=== PATIENT | female | born 1945 | race Caucasian/White ===

== ENCOUNTER 2017-10-24 05:56 | Inpatient (IN) | payer OTHER ==
[2017-10-17 13:27] VITALS: BMI 33.0
--- NOTE | 2017-10-17 13:55 | PAT Medication Instructions ---
Service Date Oct 17, 2017. Current Home Medication List Amlodipine (Norvasc), 5 MG PO QAM Budesonide/Formoterol Fumarate (Symbicort 160/4.5 Inhaler ), 2 PUFFS INH BID Losartan Potassium (Cozaar), 50 MG PO QAM Sertraline (Zoloft), 25 MG PO QAM Tramadol (Ultram), 50 MG PO TID PRN for RN [Levalbuterol Inh], 1 DOSE INH PRN Medication Instructions For Your Scheduled Surgery - Hold the following medications the morning of surgery: Losartan Potassium (Cozaar), 50 MG PO QAM - Take the following medications the morning of surgery with a sip of water OTHERWISE NOTHING TO EAT OR DRINK AFTER MIDNIGHT: Tramadol (Ultram), 50 MG PO TID PRN (may take if needed up to 4 hours prior to surgery) Amlodipine (Norvasc), 5 MG PO QAM Sertraline (Zoloft), 25 MG PO QAM Budesonide/Formoterol Fumarate (Symbicort 160/4.5 Inhaler ), 2 PUFFS INH BID [Levalbuterol Inh], 1 DOSE INH PRN (use if needed; BRING TO HOSPITAL) - Take the following medications as scheduled the night before surgery: Tramadol (Ultram), 50 MG PO TID PRN Budesonide/Formoterol Fumarate (Symbicort 160/4.5 Inhaler ), 2 PUFFS INH BID [Levalbuterol Inh], 1 DOSE INH PRN If you have any questions please call us at [phone] or [phone] or [phone]
--- NOTE | 2017-10-17 14:37 | DIAGNOSTIC IMAGING REPORT ---
CHEST 2 VIEWS ROUTINE HISTORY: Preop. COMPARISON: None. FINDINGS: The lungs are hyperexpanded with apical predominant emphysematous changes. The heart is normal in size. No pleural effusions. No pneumothorax. A 4 mm nodular density within the periphery of the right midlung zone at the minor fissure. IMPRESSION: No acute process. A 4 mm nodular density along the right minor fissure. Electronically signed by: Scott Duval M.D. 10/17/2017 2:35 PM Dictated Date/Time: 10/17/2017 2:30 PM
[2017-10-17 14:50] LABS: BASO % 0.2 %; BASO ABS # 0.02 K/uL (0-0.2); EOS % 4.4 %; EOS ABS # 0.36 K/uL (0-0.5); HEMOGLOBIN 12.4 g/dL (12.0-16.0); IG# 0.03 K/uL (0.00-0.02); LYMPH % 20.9 %; LYMPH ABS # 1.71 K/uL (1.2-3.4); MEAN CELL VOLUME 93.2 fL (80-100); MEAN CORPUSCULAR HEMOGLOBIN 31.2 pg (25-34); MEAN CORPUSCULAR HGB CONC 33.5 g/dl (32-36); MEAN PLATELET VOLUME 10.9 fL (7.4-10.4); MONO % 7.4 %; MONO ABS # 0.61 K/uL (0.11-0.59); NEUT % 66.7 %; NEUT ABS # 5.47 K/uL (1.4-6.5); PLATELET COUNT 313 K/uL (130-400); RED CELL DISTRIBUTION WIDTH CV 13.8 % (11.5-14.5); RED CELL DISTRIBUTION WIDTH SD 47.7 fL (36.4-46.3)
[2017-10-17 15:00] LABS: PTT PATIENT 25.1 SECONDS (21.0-31.0)
[2017-10-17 15:38] LABS: CALCIUM 9.1 mg/dl (8.5-10.1); CREATININE 1.48 mg/dl (0.60-1.20); POTASSIUM 5.2 mmol/L (3.5-5.1)
[2017-10-17 15:40] LABS: TOTAL PROTEIN 8.1 gm/dl (6.4-8.2)
[2017-10-18 05:46] LABS: HEMOGLOBIN A1C 5.4 % (4.5-5.6)
--- NOTE | 2017-10-18 12:33 | HISTORY & PHYSICAL EXAMINATION ---
DATE OF ADMISSION: 10/24/2017 CHIEF COMPLAINT: Left hip pain. HISTORY OF PRESENT ILLNESS: Ana is a 72-year-old female with a multiple-year history of pain in her left hip. The patient rates her pain a 10/10. She has pain with her daily activities. She has limited standing and walking tolerance. Pain is worse with weightbearing. The patient has had Mobic, PT and injections without relief. She has failed conservative treatment and is scheduled for a left hip replacement. PAST MEDICAL HISTORY: Hypertension and asthma. She denies heart disease, diabetes or DVT. PAST SURGICAL HISTORY: Hysterectomy, carpal tunnel release and right ulnar nerve transfer. SOCIAL HISTORY: The patient denies alcohol or tobacco use. She lives in a single anne home. She is and retired. FAMILY HISTORY: Negative for DVT. MEDICATIONS: Meloxicam 15 mg daily, Symbicort 160 two puffs two times daily, tramadol 50 mg p.r.n., levalbuterol 0.63 mg 3 liters q. 8 hours, sertraline 25 mg, amlodipine 25 mg daily, azithromycin 250 mg daily. ALLERGIES: CODEINE CAUSES ANAPHYLAXIS. REVIEW OF SYSTEMS: See HPI. Ten other systems reviewed, all negative. PHYSICAL EXAMINATION: VITAL SIGNS: Height 6 feet 0 inches, weight 163 pounds. BMI is 33. GENERAL: This is a well-developed, well-nourished female who is alert and oriented x3. Mood and affect are appropriate. HEENT: Normocephalic, atraumatic. Mucous membranes are moist and intact. NECK: Supple without lymphadenopathy. HEART: Regular rate and rhythm without murmurs, rubs, or gallops. LUNGS: Clear to auscultation without wheezes or rhonchi. ABDOMEN: Soft and nontender. Bowel sounds are equal and active. EXTREMITIES: No ecchymosis, redness or warmth. Log roll of the hip reproduces pain in the groin. Range of motion is decreased. She is neurovascularly intact. She has no distal edema. She walks with an antalgic gait. X-RAY EXAMINATION: AP and lateral views show joint space narrowing and osteophyte formation. IMPRESSION: Degenerative joint disease, left hip. PLAN: The patient will be admitted for a left total hip arthroplasty with Dr. Brower. We will plan on aspirin 325 mg b.i.d. for DVT prophylaxis. The patient's PCP is Dr. Mccormick.
[2017-10-24] VITALS (8 sets, daily range): BP systolic 79–132; BP diastolic 48–81; PULSE 74–86; TEMP 36.3–36.9; O2SAT 96–100; Ht 152.4 cm; Wt 76.5 kg
[~2017-10-24] VITALS: Ht 152.4 cm; Wt 76.5 kg
[~2017-10-24 05:56] MED LIST: AMLO-110 PO; LEVALBUTEROL; LOSA50TA6 PO; SERT25TA PO; SYMIN160 INH; TRAM-10 PO
[2017-10-24] MEDS ORDERED: GABAPENTIN 300 MG CAP PO SCH (06:00)
[2017-10-24] MEDS ORDERED: CeleBREX 200 MG CAP PO SCH (06:00)
[2017-10-24] MEDS ORDERED: ACETAMINOPHEN 500 MG TAB PO SCH (06:00)
[2017-10-24] MEDS ORDERED: ROPIVACAINE 5MG/ML 30 ML 150 MG, BUPIVACAINE 0.5% MPF INJ 30 ML, EpINEphrine HCL INJ 0.... INFIL SCH ×16 (06:00)
[2017-10-24] MEDS ORDERED: METOCLOPRAMIDE HCL 10 MG TAB PO SCH (06:00)
[2017-10-24] MEDS ORDERED: LACTATED RINGER'S 1000ML 500 ML IV SCH (06:00)
[2017-10-24] MEDS ORDERED: FAMOTIDINE 20 MG TAB PO SCH (06:00)
[2017-10-24] MEDS ORDERED: DEXAMETHASONE 4 MG TAB PO SCH (06:00)
[2017-10-24] MEDS ORDERED: CEFAZOLIN 1000MG IV PUSH 5 ML IV SCH (06:00)
[2017-10-24] MEDS ORDERED: LACTATED RINGER'S 1000ML 1,000 ML IV SCH (06:00)
[2017-10-24] MEDS ORDERED: BUPIVACAINE 0.5 % 5 MG/1 ML PF 10ML VIAL ONE (06:31)
[2017-10-24] MEDS ORDERED: POVIDONE-IODINE OP SOLN 30 ML BTL ONE (06:53)
[2017-10-24] MEDS ORDERED: ORTHO JOINT ANESTHETIC ONE (06:53)
[2017-10-24] MEDS ORDERED: BACITRACIN 50000 UNIT VIAL ONE (06:53)
--- NOTE | 2017-10-24 07:09 | History & Physical Bridge Note ---
H&P Re-Evaluation Bridge Note: I have examined the patient, reviewed the History & Physical and in the interval since the performance of the History & Physical I have noted the following changes of clinical significance: No changes noted
[2017-10-24] MEDS ORDERED: ONDANSETRON INJ 2 MG/ML 2 ML VIAL IV PRN ×2 (08:00→11:30)
[2017-10-24] MEDS ORDERED: FENTANYL CITRATE INJ 50 MCG/1 ML 2 ML VIAL IV PRN (08:00)
[2017-10-24] MEDS ORDERED: ATROPINE SULFATE 0.1 MG/ML 5ML SYR IV PRN (08:00)
[2017-10-24] MEDS ORDERED: EpHEDrine SULFATE INJ 50 MG/ML AMP IV PRN (08:00)
[2017-10-24] MEDS ORDERED: MIDAZOLAM HCL 1 MG/ML 2ML VIAL ONE ×3 (08:01→10:47)
[2017-10-24 08:16] LABS: CALCIUM 9.2 mg/dl (8.5-10.1); CREATININE 1.52 mg/dl (0.60-1.20); POTASSIUM 5.1 mmol/L (3.5-5.1)
[2017-10-24] MEDS: TRANEXAMIC ACID INJ 1,000 MG in SYRINGE 0 ML IV SCH ×2 (08:50→14:16)
[2017-10-24] MEDS ORDERED: PHENYLEPHRINE 100MCG/ML 5ML SYR ONE (09:39)
[2017-10-24] MEDS ORDERED: SODIUM CHLORIDE 0.9% INJ 10 ML VIAL ONE (09:39)
[2017-10-24] MEDS ORDERED: EpHEDrine SULFATE 50MG/5ML SYR ONE (09:39)
[2017-10-24] MEDS ORDERED: CEFAZOLIN SOD 1 GM VIAL ONE (09:39)
[2017-10-24] MEDS ORDERED: LIDOCAINE HCL 2% 2 ML VIAL (20MG/ML) ONE (09:39)
[2017-10-24] MEDS ORDERED: PROPOFOL IV EMULSION 10 MG/ML 20 ML VIAL IV ONE (09:39)
[2017-10-24] MEDS ORDERED: ALBUMIN HUMAN 5% 12.5 GM/250 ML VIAL IV ONE (10:38)
[2017-10-24] MEDS ORDERED: PHENYLEPHRINE HCL INJ 10 MG/ML VIAL ONE (11:00)
--- NOTE | 2017-10-24 11:22 | [facility] Post Operative Brief Note ---
Immediate Operative Summary Operative Date Oct 24, 2017. Pre-Operative Diagnosis Left Hip Degenerative Joint Disease Post-Operative Diagnosis Same as preop Procedure(s) Performed Left Total Hip Arthroplasty Uncemented Surgeon Dr. Brower Car Driver Surgeon(s) Brandt Levine PA-C Estimated Blood Loss 500 ml Findings Consistent with Post-Op Diagnosis Specimens A. Left Femoral Head Drains None Anesthesia Type MAC Spinal Regional Complication(s) none Disposition Disposition: Recovery Room / PACU
[2017-10-24] MEDS ORDERED: OXYCODONE HCL IR 5 MG TAB (IMMEDIATE RELEASE) PO PRN (11:30)
[2017-10-24] MEDS ORDERED: MoRPHine SULFATE 4 MG/ML 1 ML CARP\\VIAL IV PRN (11:30)
[2017-10-24] MEDS ORDERED: FENTANYL CITRATE INJ 50 MCG/1 ML 2 ML VIAL ONE (11:31)
--- NOTE | 2017-10-24 12:34 | DIAGNOSTIC IMAGING REPORT ---
AP PELVIS, CROSSTABLE LATERAL LEFT HIP History: Left total hip arthroplasty. Degenerative arthritis. Postop. FINDINGS: The patient is status post a left total hip arthroplasty. The hardware is intact. No fracture or dislocation. Skin minor and surgical drains are in place. IMPRESSION: Left total hip arthroplasty. No evidence for hardware complication. Electronically signed by: Scott Duval M.D. 10/24/2017 12:32 PM Dictated Date/Time: 10/24/2017 12:31 PM
--- NOTE | 2017-10-24 13:48 | Anesthesiology Progress Note ---
Anesthesia Post Op Note Date & Time Oct 24, 2017 at 13:48 Vital Signs Pain Intensity: 0 Vital Signs Past 12 Hours Date Time Temp Pulse Resp B/P (MAP) Pulse Ox O2 Delivery O2 Flow Rate FiO2 10/24/17 12:55 77 16 106/64 99 Nasal Cannula 2 10/24/17 12:45 73 16 98/65 100 Nasal Cannula 2 10/24/17 12:35 77 16 101/57 100 Nasal Cannula 2 10/24/17 12:25 36.6 77 16 94/57 100 Nasal Cannula 2 10/24/17 12:15 73 16 98/59 100 Nasal Cannula 2 10/24/17 12:05 78 16 111/56 100 Nasal Cannula 2 10/24/17 11:55 78 16 98/51 100 Nasal Cannula 2 10/24/17 11:47 83/64 10/24/17 11:46 37 73 16 10/24/17 06:54 36.9 79 21 132/81 97 Room Air Notes Mental Status: alert / awake / arousable, participated in evaluation Pt Amnestic to Procedure: Yes Nausea / Vomiting: adequately controlled Pain: adequately controlled Airway Patency, RR, SpO2: stable & adequate BP & HR: stable & adequate Hydration State: stable & adequate Neuraxial Anesthesia: was administered, sensory block is resolving Anesthetic Complications: no major complications apparent
[2017-10-24] MEDS: ACETAMINOPHEN 500 MG TAB PO SCH ×2 (14:30→21:35)
[2017-10-24] MEDS: TRAMADOL HCL 50 MG TAB PO PRN (14:30)
[2017-10-24] MEDS: SODIUM CHLORIDE 0.9% 1000ML 1,000 ML IV SCH (14:48)
--- NOTE | 2017-10-24 15:28 | Discharge Instructions ---
Discharge Instructions Date of Service Oct 24, 2017. Admission Reason for Admission: Left Hip Osteoarthritis Discharge Discharge Diagnosis / Problem: sp left JACQUELIN Discharge Goals Goal(s): Decrease discomfort, Improve function, Increase independence Activity Recommendations Activity Limitations: per Instructions/Follow-up section . Instructions / Follow-Up Instructions / Follow-Up ACTIVITY RECOMMENDATIONS: SELF CARE INSTRUCTIONS AFTER TOTAL HIP REPLACEMENT Until the incision and soft tissues around your hip have healed, there is a possibility that the hip prosthesis could dislocate. A. Observe the following precautions to prevent dislocation: 1. Don't bend your hip greater than 90 degrees. 2. Avoid crossing your legs or ankles while standing or lying. 3. Sit with your feet placed 6 inches apart. 4. When sitting, keep your knees below your hips. Sit on a firm surface, avoid deep, soft chairs and couches. Use an elevated toilet seat in the bathroom. 5. Don't bend over at the waist. Use a long handled shoehorn and a sock aid to help you put on your shoes and socks. A team manager can help you pickle cutter objects that are too high or too low to reach. 6. Keep car riding to a minimum for at least one month after surgery. B. Your balance may be shaky for a while. Use crutches or a walker until directed by your doctor. C. Use hand rails when walking on stairs. D. Wear low heeled shoes with non-slip soles. E. Be sure that your floors are free of things that could trip you - throw rugs , electrical cords, small objects. Avoid wet and waxed floors, especially with crutches and canes. F. Try to walk several times a day with rest periods between. G. Continue with all the exercises taught to you in the hospital. Again, make walking a part of your daily routine. SPECIAL CARE INSTRUCTIONS: VERY IMPORTANT TO READ AND REVIEW A. You may still be at risk for phlebitis and blood clots. 1. Wear surgical stockings (KHUSHBU hose) for 2 weeks after surgery to improve circulation and reduce swelling. 2. Take Aspirin 325 mg twice daily for 4 weeks or as directed by your doctor. This is your blood thinner. 3. High risk patients may be prescribed a stronger blood thinner if necessary. 4. If you are on Coumadin normally, your family doctor/director employee communications should monitor your blood work. Expect a phone call the day of or the day after bloodwork is drawn to adjust your dosage. B. You must take antibiotics before having dental work, bladder, bowel and other surgery. Your doctor will provide you with a permanent card to carry describing precautions. C. Call [facility] if you have a fever, redness or swelling around the incision, cloudy drainage from incision, or sudden increase in pain in your hip, not relieved by your regular pain medication. D. Please call the office at if you have any concerns or questions about your operation or recovery. * YOU MAY SHOWER, NO TUB BATHS UNTIL CLEARED BY YOUR DOCTOR. * WEAR KHUSHBU HOSE 20 HOURS PER DAY FOR 2 WEEKS. * YOU SHOULD USE A WALKER OR CRUTCHES FOR 2-4 WEEKS. THIS WILL HELP PREVENT STRAIN ON YOUR HIP MUSCLE AND ALLOW IT TO HEAL PROPERLY. YOU MAY WEAN TO A CANE TOLERATED. * MOST PATIENTS WILL HAVE HOME NURSING FOR THERAPY. IF YOU DECIDE TO DO OUTPATIENT PHYSICAL THERAPY, PLEASE SCHEDULE THIS 3 TIMES PER WEEK. DERMABOND Prineo- This is a mesh tape dressing that is covered with glue. It should remain in place until the incision is properly healed, usually 10-14 days. This dressing is designed to naturally slough off. You may trim the excess mesh tape as it peels off. Incision may be briefly wet in a shower. Dry immediately by blotting with a clean, dry towel. Do not bath or swim until instructed by your doctor. Do not scratch, rub, or pick at the dressing. Do not apply any topical ointments or lotions until dressing is completely removed and/or instructed by your doctor. There may be a small piece of suture material at one end of your incision. Do not pull or trim this. If it is bothersome or catching on clothing, you may cover it with a band-aid. FOLLOW UP VISIT: If appointment is not already scheduled: Please call [facility] to make a follow-up appointment for 2 weeks after your surgery at . Current Hospital Diet Patient's current hospital diet: Regular Diet Discharge Diet Recommended Diet: Regular Diet Procedures Procedures Performed: Left Total Hip Arthroplasty Uncemented Pending Studies Studies pending at discharge: no Laboratory Results Hemoglobin A1c Test 10/17/17 14:07 Range/Units Estimated Average Glucose 108 mg/dl Hemoglobin A1c 5.4 4.5-5.6 % Medical Emergencies . Who to Call and When: Medical Emergencies: If at any time you feel your situation is an emergency, please call 911 immediately. . Non-Emergent Contact Non-Emergency issues call your: Surgeon . "Provider Documentation" section prepared by Maeve Santos. . VTE Core Measure Inpt VTE Proph given/why not?: Other Anticoagulation, T.E.D. Stockings, SCD's [place] Drug Monitoring Program Search Results: patient reviewed within database, no issues identified
[2017-10-24] MEDS ORDERED: XPNINS INH (15:55)
[2017-10-24] MEDS ORDERED: LEVALBUTEROL 0.63MG/3 ML NEB INH PRN (16:00)
[2017-10-24] MEDS ORDERED: NURSING VERBAL MED ORDER ONE (16:00)
[2017-10-24] MEDS: CEFAZOLIN IV 1,000 MG in SYRINGE 0 ML IV SCH (18:25)
[2017-10-24] MEDS: KETOROLAC TROMETHAMINE 15 MG/ML VIAL IV. SCH ×2 (18:25→23:32)
--- NOTE | 2017-10-24 20:31 | Orthopedic Progress Note ---
Orthopedic Progress Note Date of Service Oct 24, 2017. Subjective Additional Notes: Postoperative progress note Patient seen at bedside, comfortable, no acute issues, pain well controlled. Objective LLE NVSI +EHL/FHL/TA/GS SILT grossly, CR< 2 seconds, +2 DP pulse, compartments soft NT, dressing cdi Date Time Temp Pulse Resp B/P (MAP) Pulse Ox O2 Delivery O2 Flow Rate FiO2 10/24/17 19:31 36.3 78 18 99/62 (74) 98 Room Air 10/24/17 16:08 36.5 83 18 97/57 (70) 96 Room Air 10/24/17 15:45 96 Room Air 10/24/17 15:05 36.5 82 16 95/59 (71) 100 2.0 10/24/17 14:05 86 16 110/66 (81) 99 2.0 10/24/17 13:30 78 14 112/70 (84) 100 Nasal Cannula 2.0 10/24/17 13:05 Nasal Cannula 10/24/17 13:05 Nasal Cannula 10/24/17 12:55 77 16 106/64 99 Nasal Cannula 2 10/24/17 12:45 73 16 98/65 100 Nasal Cannula 2 10/24/17 12:35 77 16 101/57 100 Nasal Cannula 2 10/24/17 12:25 36.6 77 16 94/57 100 Nasal Cannula 2 10/24/17 12:15 73 16 98/59 100 Nasal Cannula 2 10/24/17 12:05 78 16 111/56 100 Nasal Cannula 2 10/24/17 11:55 78 16 98/51 100 Nasal Cannula 2 10/24/17 11:47 83/64 10/24/17 11:46 37 73 16 10/24/17 06:54 36.9 79 21 132/81 97 Room Air Assessment & Plan Assessment: s/p Left JACQUELIN Plan: -Ancef x 24 -DVT ppx - ASA BID -WBAT -PT/OT -Posterior hip precautions -Pain controlled -Am labs -Post operative XR demonstrates well aligned well fixed prosthesis, no fracture/ dislocation
[2017-10-24] MEDS: ASPIRIN 325 MG ECTAB PO SCH (20:33)
[2017-10-24] MEDS: BUDESONIDE/FORMOTEROL FUMARATE 160/4.5 60 PUFFS/INHALER INH SCH (20:33)
[2017-10-24] MEDS: SENNA 8.6 MG TAB PO SCH (20:33)
[2017-10-24] MEDS: DOCUSATE SODIUM 100 MG CAP PO SCH (20:33)
[2017-10-25] VITALS (15 sets, daily range): BP systolic 90–147; BP diastolic 55–73; PULSE 79–94; TEMP 36.2–36.7; O2SAT 96–99
[2017-10-25] MEDS: SODIUM CHLORIDE 0.9% 1000ML 1,000 ML IV SCH ×2 (00:33→10:12)
[2017-10-25] MEDS: CEFAZOLIN IV 1,000 MG in SYRINGE 0 ML IV SCH (02:04)
[2017-10-25 05:39] LABS: HEMATOCRIT 21.3 % (37-47); HEMOGLOBIN 7.1 g/dL (12.0-16.0); IG# 0.02 K/uL (0.00-0.02); LYMPH % 7.4 %; LYMPH ABS # 0.79 K/uL (1.2-3.4); MEAN CELL VOLUME 91.8 fL (80-100); MEAN CORPUSCULAR HEMOGLOBIN 30.6 pg (25-34); MEAN CORPUSCULAR HGB CONC 33.3 g/dl (32-36); MEAN PLATELET VOLUME 10.2 fL (7.4-10.4); MONO ABS # 0.64 K/uL (0.11-0.59); NEUT % 86.4 %; PLATELET COUNT 193 K/uL (130-400); RED CELL DISTRIBUTION WIDTH CV 13.9 % (11.5-14.5); RED CELL DISTRIBUTION WIDTH SD 46.8 fL (36.4-46.3); WHITE BLOOD COUNT 10.65 K/uL (4.8-10.8)
[2017-10-25] MEDS: ACETAMINOPHEN 500 MG TAB PO SCH ×3 (05:47→22:05)
[2017-10-25] MEDS: KETOROLAC TROMETHAMINE 15 MG/ML VIAL IV. SCH (05:47)
[2017-10-25 05:58] LABS: CALCIUM 7.6 mg/dl (8.5-10.1); CREATININE 2.01 mg/dl (0.60-1.20); POTASSIUM 5.2 mmol/L (3.5-5.1)
--- NOTE | 2017-10-25 06:32 | Clinical Documentation Query ---
CLINICAL DOCUMENTATION QUERY 72-y/o female who has undergone left uncemented THR. Patient has become anemic and hypotensive since surgery and has been given PRBC's. In your clinical opinion is this patient being managed for: ( X ) "Expected acute blood loss anemia" treated with IVF's and PRBC's. (THIS IS NOT A COMPLICATION OF CARE) ( ) Not Agree ( ) Other explanation of clinical findings (Please Explain) ( ) Unable to determine (Please Define) ( ) Need to Discuss The medical record reflects the following clinical findings, treatment, and risk factors. Clinical Indicators: Hgb 12.4->7.1, Hct 37.0->21.4, EBL of 500ml's, Hypotension 79/58 Treatment: According to I/O's PRBC's and IVF boluses where given likely in OR, monitored daily CBC's, post op VS, and on IVF's Risk Factors: Age, major orthopedic surgery Please clarify and document your clinical opinion in the progress notes and discharge summary. Terms such as "probable", "suspected", "likely", "questionable", "possible", or "still to be ruled out" are acceptable. IF IN AGREEMENT, YOU MUST DOCUMENT ABOVE DIAGNOSTIC STATEMENT IN DAILY PROGRESS NOTES AND DISCHARGE SUMMARY. This document is not part of the patient's record. Thank You, Nolan Candelario, ROMA [phone]
--- NOTE | 2017-10-25 08:33 | Orthopedic Progress Note ---
Orthopedic Progress Note Date of Service Oct 25, 2017. Subjective Reports: feeling well, complaints, pain controlled w PO medications, Denies: chest pain, SOB, nausea / vomiting, light headedness, calf pain Additional Notes: Patient doing well, denies SOB, feeling lightheaded, CP, Fevers or chills. Pain well controlled. Objective LLE NVSI +EHL/FHL/TA/GS SILT grossly, CR< 2 seconds, +2 DP pulse, compartments soft NT, dressing cdi Date Time Temp Pulse Resp B/P (MAP) Pulse Ox O2 Delivery O2 Flow Rate FiO2 10/25/17 08:03 36.2 79 16 99/59 (72) 97 Room Air 10/25/17 06:30 99/61 (74) 10/25/17 03:54 36.7 87 15 90/55 (67) 96 Room Air 10/25/17 00:51 82 103/65 (78) 10/25/17 00:00 96 Room Air 10/24/17 23:57 36.9 74 14 79/48 (58) 96 Room Air 83/48 (60) 10/24/17 19:31 36.3 78 18 99/62 (74) 98 Room Air 10/24/17 16:08 36.5 83 18 97/57 (70) 96 Room Air 10/24/17 15:45 96 Room Air 10/24/17 15:05 36.5 82 16 95/59 (71) 100 2.0 10/24/17 14:05 86 16 110/66 (81) 99 2.0 10/24/17 13:30 78 14 112/70 (84) 100 Nasal Cannula 2.0 10/24/17 13:05 Nasal Cannula 10/24/17 13:05 Nasal Cannula 10/24/17 12:55 77 16 106/64 99 Nasal Cannula 2 10/24/17 12:45 73 16 98/65 100 Nasal Cannula 2 10/24/17 12:35 77 16 101/57 100 Nasal Cannula 2 10/24/17 12:25 36.6 77 16 94/57 100 Nasal Cannula 2 10/24/17 12:15 73 16 98/59 100 Nasal Cannula 2 10/24/17 12:05 78 16 111/56 100 Nasal Cannula 2 10/24/17 11:55 78 16 98/51 100 Nasal Cannula 2 10/24/17 11:47 83/64 10/24/17 11:46 37 73 16 Laboratory Results 24 Hours: Test 10/25/17 05:14 White Blood Count 10.65 K/uL Red Blood Count 2.32 M/uL Hemoglobin 7.1 g/dL Hematocrit 21.3 % Mean Corpuscular Volume 91.8 fL Mean Corpuscular Hemoglobin 30.6 pg Mean Corpuscular Hemoglobin Concent 33.3 g/dl Platelet Count 193 K/uL Mean Platelet Volume 10.2 fL Neutrophils (%) (Auto) 86.4 % Lymphocytes (%) (Auto) 7.4 % Monocytes (%) (Auto) 6.0 % Eosinophils (%) (Auto) 0.0 % Basophils (%) (Auto) 0.0 % Neutrophils # (Auto) 9.20 K/uL Lymphocytes # (Auto) 0.79 K/uL Monocytes # (Auto) 0.64 K/uL Eosinophils # (Auto) 0.00 K/uL Basophils # (Auto) 0.00 K/uL Prothromb Time International Ratio 1.0 Prothrombin Time 10.4 SECONDS Assessment & Plan Assessment: s/p Left JACQUELIN, POD#1 Plan: -Ancef x 24 -DVT ppx - ASA BID -WBAT -PT/OT -Posterior hip precautions -Pain controlled -Am labs - Hgb 7.1 this morning. -Post operative XR demonstrates well aligned well fixed prosthesis, no fracture/ dislocation -Acute post operative anemia - patient BP low, asymptomatic, will monitor clinically, if vitals improve and patient remains asymptomatic she may be discharged, otherwise will keep overnight for continued care. Will consult medicine for further evaluation and treatment.
[2017-10-25] MEDS ORDERED: LOSARTAN POTASSIUM 50 MG TAB PO SCH (09:00)
[2017-10-25] MEDS: BUDESONIDE/FORMOTEROL FUMARATE 160/4.5 60 PUFFS/INHALER INH SCH ×2 (10:00→20:46)
[2017-10-25] MEDS: PANTOprazole SOD 40 MG TAB PO SCH (10:00)
[2017-10-25] MEDS: ASPIRIN 325 MG ECTAB PO SCH ×2 (10:00→20:46)
[2017-10-25] MEDS: AMLODIPINE BESYLATE 5 MG TAB PO SCH (10:01)
[2017-10-25] MEDS: MULTIVITAMIN TAB PO SCH (10:01)
[2017-10-25] MEDS: DOCUSATE SODIUM 100 MG CAP PO SCH ×2 (10:02→20:46)
[2017-10-25] MEDS: SERTRALINE HCL 50 MG TAB PO SCH (10:02)
--- NOTE | 2017-10-25 10:20 | Medical Consult ---
Consultation Date of Consultation: Oct 25, 2017. Attending Physician: Luigi Brower D.O. Reason for Consultation: Anemia and Electrolyte Abnormalities History of Present Illness Ms. Waddell is a 72 y/o female with PMHx of of COPD, HTN, Report Chronic Anemia, Vitamin D Deficiency, and Suspected CKD Stage III who is S/P L JACQUELIN on 10/24. Hospitalist consulted due to anemia and electrolyte abnormalities. Patient states she is certain she has underlying anemia but denies taking any supplements such as iron, B12, folate. She does take Vitamin D intermittently for deficiency. She states she feels her normal self without generalized weakness, lightheadedness/dizziness, SOB, or CP. She denies significant cardiac history including previous OH or CHF. States she does not follow with a balcony worker as she has not needed too. States she has had a stress test "a long time ago" and believes everything was good with this. Never required cardiac catheterization. Have limited labs in hospital for chronic comparison. In-hospital labs also reveal progressing elevations of Cr. Again no significant labs to compare but given estimate GFR and age would suspect she has an underlying CKD possible stage III. She has never required Nephrology referral. She continues to produce adequate urine and states she hasn't noticed any change with this. She did have an EBL of 500 cc during her operation. She has had a total of approx 1500 cc LR and NSS approx 2 L at this point with increased Cr. Does not appear volume overloaded, only mild non-pitting edema of b/l ankles. He BP has been low in the 80s systolically. However, she has been asymptomatic with this and ambulating in the room during my visit. States he BP has been elevated and she relates this to pain and chronic Celebrex and steroid use. States prior to all her orthopedic issues she has low normal BP. She has been on Losartan for a long time and denies any issues with this medication. Past Medical/Surgical History 1. COPD 2. HTN 3. Vitamin D Deficiency 4. Reported Chronic Anemia 5. Suspected CKD Stage III? Family History Heart Disease Hypertension Social History Smoking Status: Former Smoker Smokeless Tobacco Use: No Alcohol Use: none Drug Use: none Marital Status: Housing Status: lives with significant other Occupation Status: employed Allergies Coded Allergies: Codeine (Verified Allergy, Unknown, SHORTNESS OF BREATH, 10/17/17) Current Inpatient Medications Current Inpatient Medications Medications (Trade) Dose Ordered Sig/Eron Route Start Time Stop Time Status Last Admin Dose Admin Amlodipine Besylate (Norvasc Tab) 5 mg QAM PO 10/25/17 09:00 11/24/17 08:59 Budesonide/ Formoterol Fumarate (Symbicort 160/ 4.5 Inh) 2 puffs BID INH 10/24/17 21:00 11/23/17 20:59 10/24/17 20:33 2 PUFFS Sertraline HCl (Zoloft Tab) 25 mg QAM PO 10/25/17 09:00 11/24/17 08:59 Sodium Chloride 1,000 ml @ 100 mls/hr Q10H IV 10/24/17 13:45 10/25/17 11:21 10/25/17 00:33 100 MLS/HR Oxycodone HCl (Roxicodone Immediate Rel Tab) 1 TABLET FOR PAIN RATING... Q4H PRN PO 10/24/17 11:30 11/07/17 11:29 Morphine Sulfate (MoRPHine SULFATE INJ) 4 mg Q4 PRN IV 10/24/17 11:30 11/07/17 11:29 Acetaminophen (Tylenol Tab) 1,000 mg Q8 PO 10/24/17 14:00 11/23/17 13:59 10/25/17 05:47 1,000 MG Senna (Senokot Tab) 17.2 mg HS PO 10/24/17 21:00 11/23/17 20:59 10/24/17 20:33 17.2 MG Docusate Sodium (coLACE CAP) 100 mg BID PO 10/24/17 21:00 11/23/17 20:59 10/24/17 20:33 100 MG Diphenhydramine HCl (Benadryl Cap) 25 mg Q8H PRN PO 10/24/17 11:30 11/23/17 11:29 Multivitamins (Multivitamin Tab) 1 tab QAM PO 10/25/17 09:00 11/24/17 08:59 Ondansetron HCl (Zofran Inj) 4 mg Q6H PRN IV 10/24/17 11:30 11/23/17 11:29 Pantoprazole Sodium (Protonix Tab) 40 mg QAM PO 10/25/17 09:00 10/29/17 08:59 Aspirin (Ecotrin Tab) 325 mg BID PO 10/24/17 21:00 11/23/17 20:59 10/24/17 20:33 325 MG Tramadol HCl (Ultram Tab) 1 TABLET FOR PAIN RATING... Q4H PRN PO 10/24/17 11:30 11/23/17 11:29 10/24/17 14:30 100 MG Levalbuterol (Xopenex 0.63 Mg/ 3 Ml Neb) 0.63 mg HS PRN INH 10/24/17 16:00 11/23/17 15:59 Review of Systems Constitutional: No fever, No chills, No weakness, No fatigue ENT: No nasal symptoms, No sore throat Respiratory: + dyspnea on exertion (mild - chronic related to COPD), No cough, No wheezing, No dyspnea at rest Cardiovascular: No chest pain, No palpitations Abdomen: No pain, No nausea, No vomiting, No diarrhea, No GI bleeding Musculoskeletal: + swelling (b/l ankles - chronic), No calf pain Genitourinary - Female: + urinary frequency, No dysuria Neurologic: No numbness/tingling, No balance problems Hematologic / Lymphatic: No abnormal bleeding/bruising Integumentary: No rash Physical Exam Date Time Temp Pulse Resp B/P (MAP) Pulse Ox O2 Delivery O2 Flow Rate FiO2 10/25/17 08:03 36.2 79 16 99/59 (72) 97 Room Air 10/25/17 06:30 99/61 (74) 10/25/17 03:54 36.7 87 15 90/55 (67) 96 Room Air 10/25/17 00:51 82 103/65 (78) 10/25/17 00:00 96 Room Air 10/24/17 23:57 36.9 74 14 79/48 (58) 96 Room Air 83/48 (60) 10/24/17 19:31 36.3 78 18 99/62 (74) 98 Room Air 10/24/17 16:08 36.5 83 18 97/57 (70) 96 Room Air 10/24/17 15:45 96 Room Air 10/24/17 15:05 36.5 82 16 95/59 (71) 100 2.0 10/24/17 14:05 86 16 110/66 (81) 99 2.0 10/24/17 13:30 78 14 112/70 (84) 100 Nasal Cannula 2.0 10/24/17 13:05 Nasal Cannula 10/24/17 13:05 Nasal Cannula 10/24/17 12:55 77 16 106/64 99 Nasal Cannula 2 10/24/17 12:45 73 16 98/65 100 Nasal Cannula 2 10/24/17 12:35 77 16 101/57 100 Nasal Cannula 2 10/24/17 12:25 36.6 77 16 94/57 100 Nasal Cannula 2 10/24/17 12:15 73 16 98/59 100 Nasal Cannula 2 10/24/17 12:05 78 16 111/56 100 Nasal Cannula 2 10/24/17 11:55 78 16 98/51 100 Nasal Cannula 2 10/24/17 11:47 83/64 10/24/17 11:46 37 73 16 General Appearance: WD/WN, no apparent distress Head: normocephalic, atraumatic Eyes: sclerae normal ENT: hearing grossly normal Neck: supple, no JVD, trachea midline Respiratory/Chest: lungs clear, no respiratory distress, no accessory muscle use, + decreased breath sounds (diminished at bases b/l) Cardiovascular: regular rate, rhythm, + systolic murmur (faint murmur heard loudest at aortic valve) Abdomen/GI: normal bowel sounds, non tender, soft Extremities/Musculoskelatal: no calf tenderness, normal capillary refill, + swelling (non-pitting b/l ankle), + pertinent finding (dressing applied to L hip that is C/D/I; no increasing tenderness to site; no ecchymosis around dressing) Neurologic/Psych: alert, oriented x 3 Skin: normal color, warm/dry Laboratory Results Last 24 Hours Test 10/25/17 05:14 White Blood Count 10.65 K/uL Red Blood Count 2.32 M/uL Hemoglobin 7.1 g/dL Hematocrit 21.3 % Mean Corpuscular Volume 91.8 fL Mean Corpuscular Hemoglobin 30.6 pg Mean Corpuscular Hemoglobin Concent 33.3 g/dl Platelet Count 193 K/uL Mean Platelet Volume 10.2 fL Neutrophils (%) (Auto) 86.4 % Lymphocytes (%) (Auto) 7.4 % Monocytes (%) (Auto) 6.0 % Eosinophils (%) (Auto) 0.0 % Basophils (%) (Auto) 0.0 % Neutrophils # (Auto) 9.20 K/uL Lymphocytes # (Auto) 0.79 K/uL Monocytes # (Auto) 0.64 K/uL Eosinophils # (Auto) 0.00 K/uL Basophils # (Auto) 0.00 K/uL RDW Standard Deviation 46.8 fL RDW Coefficient of Variation 13.9 % Immature Granulocyte % (Auto) 0.2 % Immature Granulocyte # (Auto) 0.02 K/uL Red Blood Cell Morphology Unremarkable Prothrombin Time 10.4 SECONDS Prothromb Time International Ratio 1.0 Sodium Level 134 mmol/L Potassium Level 5.2 mmol/L Chloride Level 108 mmol/L Carbon Dioxide Level 19 mmol/L Anion Gap 7.0 mmol/L Blood Urea Nitrogen 45 mg/dl Creatinine 2.01 mg/dl Est Creatinine Clear Calc Drug Dose 23.1 ml/min Estimated GFR () 28.0 Estimated GFR (Non- 24.2 BUN/Creatinine Ratio 22.6 Random Glucose 124 mg/dl Calcium Level 7.6 mg/dl Assessment & Plan Ms. Waddell is a 72 y/o female with PMHx of of COPD, HTN, Report Chronic Anemia, Vitamin D Deficiency, and Suspected CKD Stage III who is S/P L JACQUELIN on 10/24. Hospitalist consulted due to anemia and electrolyte abnormalities. Acute Possibly on Chronic Anemia: - Patient reports known Vitamin D deficiency and intermittent supplementation for this; states she has been known to be anemic especially when she was younger but suspects this is ongoing; no previous labs for comparison - EBL was 500 cc and do suspect level of dilution on repeat labs - Is asymptomatic however she has had a decent amount of fluids and Cr continues to climb; She appears largely euvolemic and does not appear the Cr is related to fluid overload; Given increasing Cr and hypotension will transfuse - suspect findings may be related to mild hypoperfusion - Type and cross - will order 2 units and transfuse 1 and reassess with labs; May benefit from complete 2 units - Continue to trend Hgb after initial transfusion Suspect JENNIFER Possibly on CKD Stage III: Mild Hypoperfusion/ATN - Do not have significant labs to make a complete diagnosis - Fluid resuscitation has only increased Cr which may suggest this may be caused by mild hypoperfusion/mild ATN - Continue to make adequate urine and reporting pale yellow in color - Hold Losartan and avoid nephrotoxic agents Hyperkalemia: - Just mildly outside the reference range - will need to be monitored given K in blood products HTN: Currently Hypotensive - Continue to monitor - suspect will improve with volume replacement - HOld Norvasc 5 mg daily and Losartan until BP improves COPD without Exacerbation: - Symbicort 2 puffs BID and Xopenex PRN S/P L JACQUELIN on 10/24: - Pain management, IVF, DVT Prophylaxis, PT/OT evaluations per surgery - DVT Prophylaxis: ASA 325 mg BID Disposition: - Would transfuse 1 unit with H&H check after and possible need for 2 units - Would keep overnight to monitor Hgb but may also have elevations of K after blood products - If Hgb and Cr improves she likely would be good for D/C tomorrow - hospitalists will continue to follow PA Physician Supervision Note: I interviewed and examined the patient. Discussed with Santa Candelario PAC and agree with findings and plan as documented in the note. Any exceptions or clarifications are listed here: None Patient has no complaints other than fatigue lying in bed, vital signs reviewed and are stable, hemoglobin reviewed and 7.1 Cardiac exam is slightly tachycardic lungs are clear abdomen normoactive bowel sounds Postoperative acute blood loss anemia, transfuse 2 units packed red blood cells if we see appropriate rise in hemoglobin anticipate possible discharge 10/26 Documented By: Matt Marie
--- NOTE | 2017-10-25 13:27 | Anesthesiology Progress Note ---
Anesthesia Post Op Note Date & Time Oct 25, 2017 at 13:26 Vital Signs Pain Intensity: 2.0 Vital Signs Past 12 Hours Date Time Temp Pulse Resp B/P (MAP) Pulse Ox O2 Delivery O2 Flow Rate FiO2 10/25/17 13:08 36.5 90 18 117/67 10/25/17 12:48 36.6 91 18 124/73 10/25/17 12:28 36.5 91 18 105/64 10/25/17 08:10 Room Air 10/25/17 08:03 36.2 79 16 99/59 (72) 97 Room Air 10/25/17 06:30 99/61 (74) 10/25/17 03:54 36.7 87 15 90/55 (67) 96 Room Air Notes Mental Status: alert / awake / arousable, participated in evaluation Pt Amnestic to Procedure: Yes Nausea / Vomiting: adequately controlled Pain: adequately controlled Airway Patency, RR, SpO2: stable & adequate BP & HR: stable & adequate Hydration State: stable & adequate Awake alert, up in chair, pain controlled with medication, Pain scale 2. No complaints with anesthesia care.
--- NOTE | 2017-10-25 15:19 | [facility] Operative Report ---
Operative Report Operative Date Oct 25, 2017. Pre-Operative Diagnosis Left Hip Degenerative Joint Disease Post-Operative Diagnosis Same as preop Procedure(s) Performed Left Total Hip Arthroplasty Uncemented Surgeon Dr. Brower Customer Logistics Manager Surgeon(s) Brandt Levine PA-C Estimated Blood Loss 500 ml Findings see dictated op note Specimens A. Left Femoral Head Drains None Anesthesia Spinal Complication(s) None Disposition Recovery Room / PACU Indications The patient is a 72-year-old female who presents with severe progressive left hip DJD who has failed outpatient conservative treatments. I indicated the patient for a total hip replacement and the risks and benefits were explained in detail which included but not limited to infection, bleeding, blood clot, damage to surrounding bone, nerves, vessels, soft tissue, hip dislocation, failure of the prosthesis, leg length discrepancy, need for additional surgery and . The patient agreed to proceed with replacement of the hip and informed consent was obtained. Description of Procedure Following induction of adequate spinal anesthesia, the patient was transferred to the OR table and placed in lateral decubitus position with right hip down. The left hip was prepped and draped in the typical sterile fashion and a posterolateral/Junior-Langenbeck incision was made. Subcutaneous tissue was sharply dissected. Electrocautery was utilized for hemostasis. The fascia was incised throughout the length of the wound and retracted with the Charnley retractor. The bursa was taken down and the short external rotators were identified. The piriformis was tagged with #1 Vicryl. The short external rotators and capsule were divided from the posterior aspect of the femur using electrocautery. The posterior capsule was tagged with #1 Vicryl. Both external rotators and posterior capsule were swept posterior and protected, along with protecting the sciatic nerve. The hip was dislocated by flexion and internally rotation in a controlled manner and exposure of the femoral neck was gained with an old-style Hohmann and a blunt cobra retractor. A femoral cutting guide was utilized for making the appropriate level femoral neck cut with reciprocating saw. The femoral head was removed, measured and reserved on the back table. Next, attention was turned to the acetabulum. A posterior and anterior offset retractor was placed to gain adequate exposure. Acetabular labrum as well as posterior capsule elements were removed using electrocautery and forceps. Fovea centralis was cleared of all soft tissue. Sequential reaming was performed starting at 44mm and carried up to a 47mm and decision was made to proceed with impaction of a 48mm trabecular metal cup. This was impacted and held using a single 35 mm bone screw. The trial acetabular liner was placed at this time. Next, attention was turned to the femoral portion of the case where a Bovie and pickup was used to further clear short external rotators from their insertion on the femur. Box osteotome and canal finder was used to gain access to the femoral canal and the lateral reamer on power was used to further open the proximal lateral canal. Sequentially rasping was carried up to a 9 which gave good fit and fill of the proximal femur. A trial reduction was carried out with a extended offset femoral neck component a -3.5 x 32 mm femoral head. The trial reduction was stable in all degrees of rotation with no [id number] impingement. The hip was dislocated, trial components were removed and access to the acetabulum was re-established. The trial liner was removed and the cup was irrigated to ensure all debris was removed. The final acetabular liner was inserted and properly seated in the cup. Access to the femur was once more gained and the size 9 femoral stem with extended offset was impacted into position. The hip was once more assessed with the -3.5 x 32mm femoral head. Stability was accessed and found to be excellent with equal leg lengths. The hip was dislocated for the last time and the final -3.5 x 32mm ceramic femoral head was impacted in place and the hip was reduced. Range of motion was checked once again and found to be stable. The wound was copiously irrigated with sterile saline solution. The pipe-incisional soft tissue was injected utilizing [place] ortho mix which includes a combination of Ropivicaine 0.5% 150mg, Bupivicaine 0.5%/Epinephrine 1:200,000 30ml, Toradol 30mg, Dexamethasone 4mg, Ketamine 10mg, Clonidine 100mcg and NSS 30ml Orthomix solution. The piriformis, external rotators and capsule were repaired to the greater trochanter through bone tunnels using #5 FiberWire. The fascia was closed using #1 Vicryl, subcutaneous tissue was closed using 2-0 Vicryl, and skin was closed with 3-0 V-lock suture and Dermabond Prineo. Sterile dressings were applied which included christelle, 4x4s and tegaderm adhesive dressing. The patient tolerated the procedure well and was transported to PACU in stable condition. Due to the complex nature of the procedure, the entire surgery was performed with the operational assistance of Brandt Levine PA-C. The client services assistant, under direct supervision, was involved in the actual performance of all aspects of the surgical procedure including hemostasis, tissue retraction and incision, instrument management, patient positioning, and wound closure. I attest to the content of the Intraoperative Record and any orders documented therein. Any exceptions are noted below.
[2017-10-25] MEDS: SENNA 8.6 MG TAB PO SCH (20:47)
[2017-10-25] MEDS: TRAMADOL HCL 50 MG TAB PO PRN (20:47)
[2017-10-25] MEDS ORDERED: CeleBREX 200 MG CAP PO SCH (21:00)
[2017-10-26] MEDS: ACETAMINOPHEN 500 MG TAB PO SCH (05:51)
[2017-10-26 06:06] VITALS: BP 111/72; PULSE 81; TEMP 36.4; O2SAT 97
[2017-10-26 07:11] LABS: BASO % 0.2 %; BASO ABS # 0.02 K/uL (0-0.2); EOS % 0.9 %; EOS ABS # 0.09 K/uL (0-0.5); HEMATOCRIT 26.8 % (37-47); IG# 0.03 K/uL (0.00-0.02); LYMPH % 15.1 %; LYMPH ABS # 1.53 K/uL (1.2-3.4); MEAN CELL VOLUME 90.8 fL (80-100); MEAN CORPUSCULAR HEMOGLOBIN 30.5 pg (25-34); MEAN CORPUSCULAR HGB CONC 33.6 g/dl (32-36); MEAN PLATELET VOLUME 10.6 fL (7.4-10.4); MONO % 11.2 %; MONO ABS # 1.13 K/uL (0.11-0.59); NEUT % 72.3 %; NEUT ABS # 7.32 K/uL (1.4-6.5); PLATELET COUNT 221 K/uL (130-400); RED CELL DISTRIBUTION WIDTH CV 14.6 % (11.5-14.5); RED CELL DISTRIBUTION WIDTH SD 48.4 fL (36.4-46.3); WHITE BLOOD COUNT 10.12 K/uL (4.8-10.8)
[2017-10-26 07:15] VITALS: BP 104/66; PULSE 78; TEMP 36.6; O2SAT 99
[2017-10-26 07:41] LABS: CALCIUM 8.7 mg/dl (8.5-10.1); CREATININE 1.4 mg/dl (0.60-1.20); POTASSIUM 4.6 mmol/L (3.5-5.1)
--- NOTE | 2017-10-26 08:30 | Orthopedic Progress Note ---
Orthopedic Progress Note Date of Service Oct 26, 2017. Subjective Post OP Day: 2 Reports: feeling well, Denies: chest pain, SOB, nausea / vomiting, light headedness, calf pain Objective calves soft nontender, N/V intact, hip located, dressing C/D/I, A&O x3, toes mobile Date Time Temp Pulse Resp B/P (MAP) Pulse Ox O2 Delivery O2 Flow Rate FiO2 10/26/17 07:15 36.6 78 16 104/66 (79) 99 Room Air 10/26/17 06:06 36.4 81 16 111/72 (85) 97 Room Air 10/25/17 23:45 Room Air 10/25/17 22:37 36.4 81 16 147/72 (97) 99 Room Air 10/25/17 19:45 92 20 98 Nasal Cannula 1.0 10/25/17 16:15 98 Room Air 10/25/17 15:34 36.3 91 18 130/61 (84) 98 Room Air 10/25/17 15:08 36.5 93 14 119/72 98 10/25/17 14:33 36.3 94 18 109/63 97 10/25/17 13:45 36.5 93 18 126/68 10/25/17 13:08 36.5 90 18 117/67 10/25/17 12:48 36.6 91 18 124/73 10/25/17 12:28 36.5 91 18 105/64 Laboratory Results 24 Hours: Test 10/26/17 06:51 White Blood Count 10.12 K/uL Red Blood Count 2.95 M/uL Hemoglobin 9.0 g/dL Hematocrit 26.8 % Mean Corpuscular Volume 90.8 fL Mean Corpuscular Hemoglobin 30.5 pg Mean Corpuscular Hemoglobin Concent 33.6 g/dl Platelet Count 221 K/uL Mean Platelet Volume 10.6 fL Neutrophils (%) (Auto) 72.3 % Lymphocytes (%) (Auto) 15.1 % Monocytes (%) (Auto) 11.2 % Eosinophils (%) (Auto) 0.9 % Basophils (%) (Auto) 0.2 % Neutrophils # (Auto) 7.32 K/uL Lymphocytes # (Auto) 1.53 K/uL Monocytes # (Auto) 1.13 K/uL Eosinophils # (Auto) 0.09 K/uL Basophils # (Auto) 0.02 K/uL Additional Notes: Item Value Date Time Blood Urea Nitrogen 38 mg/dl H 10/26/17 0651 Creatinine 1.40 mg/dl H # 10/26/17 0651 Assessment & Plan Assessment: s/p Left JACQUELIN, POD#2 Acute on chronic anemia- improving CKD Plan: -Ancef x 24 -DVT ppx - ASA BID, will check with medical service prior to DC given renal status -WBAT -PT/OT -Posterior hip precautions -Pain controlled -Am labs - Hgb 7.1----> 9.0 today sp 2 units. -Post operative XR demonstrates well aligned well fixed prosthesis, no fracture/ dislocation - Medical management - CKD- labs improving today, baseline Cr 1.4 on 10/17. - hopeful DC if cleared by medicine. Will await final recs for DVT proph.
[2017-10-26] MEDS ORDERED: ASPEC325 PO (08:32)
[2017-10-26] MEDS ORDERED: ONDA8TAB6 PO (08:32)
[2017-10-26] MEDS ORDERED: ACET-24 PO (08:32)
[2017-10-26] MEDS ORDERED: SENN-61 PO (08:32)
[2017-10-26] MEDS ORDERED: RXC5 PO (08:32)
--- NOTE | 2017-10-26 08:46 | Discharge Instructions ---
Discharge Instructions Date of Service Oct 26, 2017. Admission Reason for Admission: Left Hip Osteoarthritis Discharge Discharge Diagnosis / Problem: Anemia and Elevated Kidney Function Discharge Goals Goal(s): Decrease discomfort, Improve function, Increase independence Activity Recommendations Activity Limitations: per Instructions/Follow-up section (Per Orthopedics recommendations) . Instructions / Follow-Up Instructions / Follow-Up Anemia: - You did receive 1 units of blood to help with your anemia due to some blood losses after surgery. - Your blood counts went from 7 to 9. In time your body with continue to make blood cells and this will improve. - Recommend to follow-up with your family doctor and if you do have underlying anemia they may want to repeat testing for iron studies, B12/folate, and Vitamin D Hypertension (High Blood Pressure): - Recommend to STOP YOUR LOSARTAN. This medication is for blood pressure but can be a little harsh on the kidneys. - Continue your Amlodipine for blood pressure control and discuss with your family doctor. - You will be on aspirin twice a day for blood clot prevention and aspirin plus other medications that can be a little harsh on the kidneys (like Losartan) can cause your kidney function numbers to increase Kidney Function: - Your kidney numbers were a little high when you were in the hospital. They improved from 2.0 to 1.4 with the blood transfusion (this is your creatinine). This number matches your pre-operative labs. This could be your normal kidney number but we do not have too many labs to compare with so your family doctor can give your more information on this. - Please discuss this with your family doctor as well. To prevent this kidney number from going up again, would recommend holding Losartan as mentioned above until you follow up with your family doctor - Will give a prescription for a blood count and electrolyte panel to makes sure everything stays well. Current Hospital Diet Patient's current hospital diet: Regular Diet Discharge Diet Recommended Diet: Regular Diet Procedures Procedures Performed: Left Total Hip Arthroplasty Uncemented Pending Studies Studies pending at discharge: no Laboratory Results Hemoglobin A1c Test 10/17/17 14:07 Range/Units Estimated Average Glucose 108 mg/dl Hemoglobin A1c 5.4 4.5-5.6 % Medical Emergencies . Who to Call and When: Medical Emergencies: If at any time you feel your situation is an emergency, please call 911 immediately. . Non-Emergent Contact Non-Emergency issues call your: Primary Care Provider Call Non-Emergent contact if: you have a fever, your pain is concerning you, you have any medication questions . . "Provider Documentation" section prepared by Santa Candelario. . VTE Core Measure Inpt VTE Proph given/why not?: Other Anticoagulation, T.E.D. Stockings, SCD's
[2017-10-26] MEDS: AMLODIPINE BESYLATE 5 MG TAB PO SCH (09:00)
[2017-10-26] MEDS: DOCUSATE SODIUM 100 MG CAP PO SCH (09:20)
[2017-10-26] MEDS: BUDESONIDE/FORMOTEROL FUMARATE 160/4.5 60 PUFFS/INHALER INH SCH (09:20)
[2017-10-26] MEDS: SERTRALINE HCL 50 MG TAB PO SCH (09:21)
[2017-10-26] MEDS: PANTOprazole SOD 40 MG TAB PO SCH (09:22)
[2017-10-26] MEDS: ASPIRIN 325 MG ECTAB PO SCH (09:22)
[2017-10-26] MEDS: MULTIVITAMIN TAB PO SCH (09:22)
--- NOTE | 2017-10-26 10:44 | Hospitalist Progress Note ---
Hospitalist Progress Note Date of Service Oct 26, 2017. (Santa Candelario PA-C) Subjective Pt evaluation today including: conversation w/ patient, physical exam, chart review, lab review, review of studies, review of inpatient medication list Patient seen and evaluated. Transfused 1 unit PRBC with improvement of Hgb from 7 to 9. Cr improved from 2 to 1.4. BP is improved. Patient feels great and is ambulating with walker in her room. Discussed holding Losartan and only using her Amlodipine. She states she has been discussing with her PCP on holding all BP medications. Recommended to follow her PCP recommendations and to follow-up with them and discuss. Do suspect she may have underlying CKD. 1.4 may be her baseline but did express to her to discuss with her family doctor who would have more labs to compare. Gave Rx for repeat blood tests in 2-3 days to monitor Hgb and kidney function. Patient is medically cleared for D/C per orthopedics. Constitutional: No fever, No chills Respiratory: No shortness of breath Cardiovascular: No chest pain Abdomen: No pain, No nausea, No vomiting, No diarrhea, No constipation Female : No dysuria Heme: No abnormal bleeding/bruising Endo: No fatigue (Santa Candelario PA-C) Medications Current Inpatient Medications Medications (Trade) Dose Ordered Sig/Eron Route Start Time Stop Time Status Last Admin Dose Admin Amlodipine Besylate (Norvasc Tab) 5 mg QAM PO 10/25/17 09:00 11/24/17 08:59 Budesonide/ Formoterol Fumarate (Symbicort 160/ 4.5 Inh) 2 puffs BID INH 10/24/17 21:00 11/23/17 20:59 10/26/17 09:20 2 PUFFS Sertraline HCl (Zoloft Tab) 25 mg QAM PO 10/25/17 09:00 11/24/17 08:59 10/26/17 09:21 25 MG Oxycodone HCl (Roxicodone Immediate Rel Tab) 1 TABLET FOR PAIN RATING... Q4H PRN PO 10/24/17 11:30 11/07/17 11:29 10/26/17 00:55 5 MG Morphine Sulfate (MoRPHine SULFATE INJ) 4 mg Q4 PRN IV 10/24/17 11:30 11/07/17 11:29 Acetaminophen (Tylenol Tab) 1,000 mg Q8 PO 10/24/17 14:00 11/23/17 13:59 10/26/17 05:51 1,000 MG Senna (Senokot Tab) 17.2 mg HS PO 10/24/17 21:00 11/23/17 20:59 10/25/17 20:47 17.2 MG Docusate Sodium (coLACE CAP) 100 mg BID PO 10/24/17 21:00 11/23/17 20:59 10/26/17 09:20 100 MG Diphenhydramine HCl (Benadryl Cap) 25 mg Q8H PRN PO 10/24/17 11:30 11/23/17 11:29 Multivitamins (Multivitamin Tab) 1 tab QAM PO 10/25/17 09:00 11/24/17 08:59 10/26/17 09:22 1 TAB Ondansetron HCl (Zofran Inj) 4 mg Q6H PRN IV 10/24/17 11:30 11/23/17 11:29 Pantoprazole Sodium (Protonix Tab) 40 mg QAM PO 10/25/17 09:00 10/29/17 08:59 10/26/17 09:22 40 MG Aspirin (Ecotrin Tab) 325 mg BID PO 10/24/17 21:00 11/23/17 20:59 10/26/17 09:22 325 MG Tramadol HCl (Ultram Tab) 1 TABLET FOR PAIN RATING... Q4H PRN PO 10/24/17 11:30 11/23/17 11:29 10/25/17 20:47 100 MG Levalbuterol (Xopenex 0.63 Mg/ 3 Ml Neb) 0.63 mg HS PRN INH 10/24/17 16:00 11/23/17 15:59 10/25/17 19:44 0.63 MG (Santa Candelario PA-C) Objective Vital Signs Date Time Temp Pulse Resp B/P (MAP) Pulse Ox O2 Delivery O2 Flow Rate FiO2 10/26/17 07:15 36.6 78 16 104/66 (79) 99 Room Air 10/26/17 06:06 36.4 81 16 111/72 (85) 97 Room Air 10/25/17 23:45 Room Air 10/25/17 22:37 36.4 81 16 147/72 (97) 99 Room Air 10/25/17 19:45 92 20 98 Nasal Cannula 1.0 10/25/17 16:15 98 Room Air 10/25/17 15:34 36.3 91 18 130/61 (84) 98 Room Air 10/25/17 15:08 36.5 93 14 119/72 98 10/25/17 14:33 36.3 94 18 109/63 97 10/25/17 13:45 36.5 93 18 126/68 10/25/17 13:08 36.5 90 18 117/67 10/25/17 12:48 36.6 91 18 124/73 10/25/17 12:28 36.5 91 18 105/64 (Santa Candelario PA-C) Physical Exam General Appearance: WD/WN, no apparent distress Eyes: sclerae normal ENT: hearing grossly normal Neck: supple, no JVD, trachea midline Respiratory/Chest: lungs clear, normal breath sounds, no respiratory distress, no accessory muscle use Cardiovascular: regular rate, rhythm, no gallop, no murmur Abdomen: normal bowel sounds, non tender, soft Extremities: no calf tenderness Neurologic/Psychiatric: alert, oriented x 3 Skin: normal color, warm/dry (Santa Candelario, EBER-C) Laboratory Results Last 24 Hours Test 10/26/17 06:51 White Blood Count 10.12 K/uL Red Blood Count 2.95 M/uL Hemoglobin 9.0 g/dL Hematocrit 26.8 % Mean Corpuscular Volume 90.8 fL Mean Corpuscular Hemoglobin 30.5 pg Mean Corpuscular Hemoglobin Concent 33.6 g/dl Platelet Count 221 K/uL Mean Platelet Volume 10.6 fL Neutrophils (%) (Auto) 72.3 % Lymphocytes (%) (Auto) 15.1 % Monocytes (%) (Auto) 11.2 % Eosinophils (%) (Auto) 0.9 % Basophils (%) (Auto) 0.2 % Neutrophils # (Auto) 7.32 K/uL Lymphocytes # (Auto) 1.53 K/uL Monocytes # (Auto) 1.13 K/uL Eosinophils # (Auto) 0.09 K/uL Basophils # (Auto) 0.02 K/uL RDW Standard Deviation 48.4 fL RDW Coefficient of Variation 14.6 % Immature Granulocyte % (Auto) 0.3 % Immature Granulocyte # (Auto) 0.03 K/uL Sodium Level 138 mmol/L Potassium Level 4.6 mmol/L Chloride Level 111 mmol/L Carbon Dioxide Level 19 mmol/L Anion Gap 8.0 mmol/L Blood Urea Nitrogen 38 mg/dl Creatinine 1.40 mg/dl Est Creatinine Clear Calc Drug Dose 33.2 ml/min Estimated GFR () 43.4 Estimated GFR (Non- 37.4 BUN/Creatinine Ratio 27.4 Random Glucose 87 mg/dl Calcium Level 8.7 mg/dl (Santa Candelario PA-C) Assessment and Plan Ms. Waddell is a 72 y/o female with PMHx of of COPD, HTN, Report Chronic Anemia, Vitamin D Deficiency, and Suspected CKD Stage III who is S/P L JACQUELIN on 10/24. Hospitalist consulted due to anemia and electrolyte abnormalities. Acute Possibly on Chronic Anemia: - Transfused 1 unit PRBC on 10/25 with improvement in hgb. - Recommend F/U CBC and BMP in next few days - Rx provided with results to go to PCP Suspect JENNIFER Possibly on CKD Stage III: Mild Hypoperfusion/ATN - Cr improved from 2.0 to 1.4 - possible 1.4 is baseline as this was her pre- operative labs however do not have reference labs for comparison - Recommended to have repeat BMP to assess and to discuss with PCP - Recommend to continue ASA 325 mg BID for DVT Prophylaxis Hyperkalemia: RESOLVED HTN: - Recommend to stop Losartan given risk of kidney interference - She reports she has been discussing with her PCP to hold both Losartan and Norvasc and would defer to her PCP for this COPD without Exacerbation: STABLE - Symbicort 2 puffs BID and Xopenex PRN S/P L JACQUELIN on 10/24: Per Primary Disposition: - F/U with PCP with Rx given for repeat blood work. Hold Losartan. Continue DVT Prophylaxis. - Medically clear for discharge per hospitalist Discharge planning: home with home health (Sanat Candelario PA-C) PA Physician Supervision Note: I interviewed and examined the patient. Discussed with Santa Candelario PAC and agree with findings and plan as documented in the note. Any exceptions or clarifications are listed here: None Patient is seen prior to going home she is feeling well she has feels like she has more energy. Her vitals are reviewed and stable her physical exam is unremarkable and she will go home to follow-up with orthopedic physical therapy instructions Documented By: Matt Marie (Matt Marie M.D.)
[2017-10-26 10:51] VITALS: BP 104/66; PULSE 78; TEMP 36.6; O2SAT 99
[2017-10-26] MEDS: TRAMADOL HCL 50 MG TAB PO PRN (11:16)
== END 2017-10-26 12:15 | disposition home health service (06) | DRG 470 ==
LOC: C.ACU 05:56 → C.MSN 07:09 → ENRESERV 12:29
PROVIDERS: ADMIT Orthopaedic Surgery; ATTEND Orthopaedic Surgery
PROC: 0SRS0JA Replacement of Left Hip Joint, Femoral Surface with Synthetic Substitute, Uncemented, Open Approach (ICD-10-PCS; principal; 2017-10-25)
DX: M16.12 Unilateral primary osteoarthritis, left hip (principal); D62 Acute posthemorrhagic anemia; I12.9 Hypertensive chronic kidney disease with stage 1 through stage 4 chronic kidney disease, or unspecified chronic kidney disease; J45.909 Unspecified asthma, uncomplicated; J44.9 Chronic obstructive pulmonary disease, unspecified; N18.3 Chronic kidney disease, stage 3 (moderate); Z90.710 Acquired absence of both cervix and uterus; Z88.5 Allergy status to narcotic agent